=== PATIENT | female | born 1995 | race Caucasian/White ===

== ENCOUNTER 2016-07-27 10:03 | Emergency (ER) | payer MEDICARE ==
[~2016-07-27] VITALS: Ht 154.9 cm; Wt 83.0 kg
[2016-07-27 10:07] VITALS: BP 124/75; PULSE 98; RESP 16; TEMP 97; O2SAT 98
--- NOTE | 2016-07-27 10:20 | NUR ---
Placed in room 7 To gown for exam. Side rails up.
--- NOTE | 2016-07-27 10:27 | NUR ---
ER at bedside examining patient.
--- NOTE | 2016-07-27 10:29 | NUR ---
c/o abdominal pain,nausea,diarrhea for four days.
[2016-07-27] MEDS ORDERED: MAG HYDROX/AL HYDROX/SIMETH 30 ML, BELLADONNA ALKALOIDS/PHENOBARB 10 ML, LIDOCAINE VISC... PO ONE ×3 (10:45)
[2016-07-27] MEDS ORDERED: ONDANSETRON 4 MG ODT TAB PO ONE (11:15)
[2016-07-27 12:02] VITALS: BP 120/73; PULSE 85; RESP 16; TEMP 97; O2SAT 98
--- NOTE | 2016-07-27 12:04 | NUR ---
Patient given written and verbal discharge instructions and verbalizes understanding. ER MD discussed with patient the results and treatment provided. Patient in stable condition. ID arm band removed. Rx of x 2,protonix and zofran given. Patient educated on pain management and to follow up with PMD. Pain Scale . Opportunity for questions provided and answered.
== END 2016-07-27 12:02 | disposition home or self-care (01) ==
LOC: SED 10:03
DX: R10.13 Epigastric pain (principal); R11.0 Nausea; R19.7 Diarrhea, unspecified; J45.909 Unspecified asthma, uncomplicated
CPT/HCPCS: 81025; 99283; J2001; Q0162

== ENCOUNTER 2016-07-28 10:34 | Emergency (ER) | payer MEDICARE ==
[~2016-07-28] VITALS: Ht 154.9 cm; Wt 83.0 kg
[2016-07-28 10:34] VITALS: BP 113/66; PULSE 80; RESP 18; TEMP 97.4; O2SAT 98
--- NOTE | 2016-07-28 12:20 | NUR ---
PT. PLACED IN ROOM 3, REPORT RECEIVED FROM MEMO RANDOLPH
--- NOTE | 2016-07-28 12:30 | NUR ---
DR. MORENO AT BEDSIDE EXAMINING THE PT.
--- NOTE | 2016-07-28 12:35 | NUR ---
PT. TO THE ER ABDIKathleenHerminio came in c/o abdominal pain,nausea,diarrhea for four days. states that she was here yesterday for the same reason, protonix did not seem to work, pain 5/10
[2016-07-28 13:01] LABS: BASOPHILS % (AUTO) 0.5 % (0.0-2.0); EOSINOPHILS # (AUTO) 0.1 K/uL (0.0-0.4); EOSINOPHILS % (AUTO) 2.5 % (0.0-4.0); HEMOGLOBIN 13.1 g/dL (12.0-16.0); LYMPHOCYTES # (AUTO) 1.7 K/uL (1.0-5.5); LYMPHOCYTES % (AUTO) 33.6 % (20.5-51.5); MEAN CORPUSCULAR HEMOGLOBIN 28 pg (27-31); MEAN CORPUSCULAR HGB CONC 34 % (32-36); MEAN CORPUSCULAR VOLUME 82 fL (79.0-98.0); MONOCYTES # (AUTO) 0.4 K/uL (0.0-1.0); MONOCYTES % (AUTO) 7.7 % (1.7-9.3); NEUTROPHILS # (AUTO) 2.9 K/uL (1.8-7.7); NEUTROPHILS % (AUTO) 55.7 % (40.0-70.0); PLATELET COUNT (AUTO) 251 K/uL (130-430); RED BLOOD CELL COUNT(AUTO) 4.73 MIL/uL (4.2-6.2); RED CELL DISTRIBUTION WIDTH 13.6 % (9.0-15.0); WHITE BLOOD COUNT (AUTO) 5.1 K/uL (4.8-10.8)
[2016-07-28 13:09] LABS: CALCIUM 9.1 mg/dL (8.4-11.0); CREATININE 0.73 mg/dL (0.55-1.30); INR 1.1 (0.8-1.2); POTASSIUM 3.4 mmol/L (3.5-5.1); PROTHROMBIN TIME 11.6 SECS (9.5-12.5)
[2016-07-28 13:41] LABS: BILIRUBIN,URINE 1+ (NEGATIVE); BLOOD, URINE 2+ (NEGATIVE); CLARITY/URINE CLEAR (CLEAR); COLOR,URINE YELLOW (YELLOW); GLUCOSE,URINE NEGATIVE (NEGATIVE); KETONES,URINE NEGATIVE (NEGATIVE); LEUKOCYTE ESTERASE ,URINE NEGATIVE (NEGATIVE); NITRITE, URINE NEGATIVE (NEGATIVE); PROTEIN URINE 1+ (NEGATIVE); UROBILINOGEN,URINE 0.2 (0.2-1.0)
[2016-07-28] MEDS ORDERED: MAG HYDROX/AL HYDROX/SIMETH 30 ML, BELLADONNA ALKALOIDS/PHENOBARB 10 ML, LIDOCAINE VISC... PO ONE ×3 (13:45)
[2016-07-28 14:00] LABS: ALBUMIN 3.9 g/dL (3.4-4.8); BILIRUBIN,DIRECT 0.1 mg/dL (0.0-0.3); TOTAL BILIRUBIN 0.2 mg/dL (0.0-1.0); TOTAL PROTEIN, SERUM 8.3 g/dL (6.4-8.3)
[2016-07-28 14:20] VITALS: BP 120/66; PULSE 80; RESP 18; TEMP 98.1; O2SAT 98
--- NOTE | 2016-07-28 14:20 | NUR ---
Patient given written and verbal discharge instructions and verbalizes understanding. ER MD dr. freeman discussed with patient the results and treatment provided. Patient in stable condition. ID arm band removed. No Rx given. Patient educated on pain management and to follow up with PMD. Pain Scale 0/10 Opportunity for questions provided and answered.
[2016-07-28 14:32] LABS: RBC,URINE 0-3 /HPF (0-3)
[2016-07-28 14:33] LABS: BACTERIA,URINE FEW /HPF (None Seen); WBC,URINE 0-3 /HPF (0-3)
[2016-07-28 14:35] LABS: MUCUS,URINE 1+ /LPF (None Seen)
== END 2016-07-28 14:20 | disposition home or self-care (01) ==
LOC: SED 10:35
DX: R10.13 Epigastric pain (principal); J45.909 Unspecified asthma, uncomplicated
CPT/HCPCS: 36415; 76700; 80048; 80076; 81000; 81025; 82150; 83690; 85025; 85610; 85730; 99285; J2001